=== PATIENT | male | born 1995 | race Caucasian/White ===

== ENCOUNTER 2016-07-17 03:32 | Emergency (ER) | payer OTHER ==
[2016-07-17 04:06] VITALS: BP 140/95
--- NOTE | 2016-07-17 08:36 | ER ---
DATE SEEN: 07/17/2016 REASON FOR VISIT: Alcohol intoxication. HISTORY OF PRESENT ILLNESS: This is a 21-year-old male from the [facility] who was brought in by ambulance after law enforcement called them because of intoxication of alcohol. The patient admits to having been drinking alcohol tonight, but denies the use of drugs. He complains of no chest pain, headache, seizure, nausea, vomiting, or diarrhea. PAST MEDICAL HISTORY: No active medical problems. ALLERGIES: No known allergies. PHYSICAL EXAMINATION: GENERAL: He is alert and awake. VITAL SIGNS: Blood pressure is 140/95, pulse is 108, and temperature 97.8. MENTAL STATUS: He is alert. He is oriented to time, place, and person. GENERAL: He is fidgety. There is an odor of alcohol about him. HEAD: Normal size. No signs of trauma. CHEST AND HEART: Normal to auscultation with exception of mild tachycardia. IMPRESSION: Alcohol intoxication. PLAN: My plan is to discharge the patient home. No further treatment necessary. Time seen, 0400 hours. /[id number] MAY/RAJINDER
== END 2016-07-17 04:35 | disposition home or self-care (01) ==
LOC: FB.ED 03:32
DX: F10.129 Alcohol abuse with intoxication, unspecified (principal)
CPT/HCPCS: 99282